=== PATIENT | male | born 1965 | race Caucasian/White ===

== ENCOUNTER 2021-01-12 10:51 | Emergency (ER) | payer BC ==
[~2021-01-12] VITALS: Ht 177.8 cm; Wt 100.0 kg
[2021-01-12] MEDS ORDERED: KETOROLAC 60MG/2ML VIAL IM ONE (11:45)
[2021-01-12] MEDS ORDERED: BACITRACIN ZINC OINT UDPKT TOP ONE (11:45)
[2021-01-12 12:33] VITALS: BP 141/78
[2021-01-12] MEDS ORDERED: TETANUS, DIPHTHERIA, PERTUSSIS VAC/PF 0.5ML (>7YR OLD) IM ONE (12:45)
[2021-01-12] MEDS ORDERED: IBUP-2029 MT (13:04)
[2021-01-12] MEDS ORDERED: BO1 TP (13:04)
== END 2021-01-12 13:16 | disposition home or self-care (01) ==
LOC: ER 10:51
DX: S61.212A Laceration without foreign body of right middle finger without damage to nail, initial encounter (principal); M79.644 Pain in right finger(s); W26.0XXA Contact with knife, initial encounter; Y93.G1 Activity, food preparation and clean up; Y92.9 Unspecified place or not applicable
CPT/HCPCS: 73130; 90471; 90715; 96372; 99284; A4217; J1885

== ENCOUNTER 2021-06-11 06:35 | Emergency (ER) | payer BC, OTHER ==
[~2021-06-11] VITALS: Ht 177.8 cm; Wt 96.0 kg
[~2021-06-11 06:35] MED LIST: BO1 TP; IBUP-2029 MT
[2021-06-11] MEDS ORDERED: ACETAMINOPHEN 325MG TABLET PO ONE (07:15)
[2021-06-11 07:27] VITALS: BP 130/78
[2021-06-11] MEDS ORDERED: ACET-2708 MT (08:31)
[2021-06-11] MEDS ORDERED: BACL-141 MT (08:31)
[2021-06-11] MEDS ORDERED: LIDO700A15 TP (08:31)
[2021-06-11] MEDS ORDERED: IBUP-2029 MT (08:31)
== END 2021-06-11 08:37 | disposition home or self-care (01) ==
LOC: ER 06:35
DX: S43.492A Other sprain of left shoulder joint, initial encounter (principal); S80.211A Abrasion, right knee, initial encounter; I10 Essential (primary) hypertension; Y08.89XA Assault by other specified means, initial encounter; Y93.89 Activity, other specified; Y92.89 Other specified places as the place of occurrence of the external cause; Y99.8 Other external cause status; Z79.899 Other long term (current) drug therapy
CPT/HCPCS: 73030; 99283; A4565